=== PATIENT | female | born 1940 | race Caucasian/White ===

== ENCOUNTER 2016-10-23 20:41 | Inpatient (IN) | payer MEDICARE, OTHER ==
[2016-10-21 13:52] LABS: A/G RATIO 1.4 (0.7-1.9); ALBUMIN 3.8 G/DL (3.5-5.0); ALKALINE PHOSPHATASE 49 U/L (45-117); CALCIUM, SERUM 8.7 MG/DL (8.5-10.4); CHLORIDE, SERUM 108 MMOL/L (96-112); CO2 (CARBON DIOXIDE) 26 MMOL/L (24-34); GFR AFRICAN AMERICAN 24 ML/MIN (>=60); GFR NON AFRICAN AMERICAN 21 ML/MIN (>=60); GLOBULIN 2.8 G/DL (2.5-4.1); GLUCOSE, SERUM 98 MG/DL (60-99); IRON, SERUM 49 MCG/DL (35-150); POTASSIUM, SERUM 5.2 MMOL/L (3.5-5.3); SGOT(AST) 16 U/L (5-40); SGPT(ALT) 17 U/L (5-65); SODIUM, SERUM 140 MMOL/L (135-148); TOTAL BILIRUBIN 0.4 MG/DL (0-1.2); TOTAL PROTEIN 6.6 G/DL (6.0-8.5)
[2016-10-21 14:04] LABS: BUN (BLOOD UREA NITROGEN) 26 MG/DL (6-23); CREATININE 2.22 MG/DL (0.55-1.02)
--- NOTE | ~2016-10-23 | CN ---
Consultation Report [facility] [address] [place]. [address] NAME: BALDO ZHAO : 42 STATUS : ADM IN PAT#: [id number] AGE: 76 ADM/REG DATE : 10/23/16 MR#: [id number] REPORT SERV DATE: 10/24/16 DICTATED BY: MAX JACKMAN JR. DATE: 10/24/16 REPORT STATUS : Draft TRANSCRIBED BY: CHRISTIAN DATE: 10/24/16 CONSULTATION DATE OF CONSULTATION: 10/24/2016 CHIEF COMPLAINT: Gross hematuria and elevated creatinine. HISTORY OF PRESENT ILLNESS: Mrs. Zhao is a 76-year-old female, who is a patient of my partner, Dr. Alexandre Ching, who has been following her with longstanding staghorn calculus on the right side. He saw her in the office on Tuesday, with what appeared to be a 6 x 8 mm stone on the left in the left ureter, causing a significant degree of hydroureteronephrosis. A double-J stent was placed that day, and she was sent back home. She also had a mildly elevated creatinine of 2.22 from a baseline of approximately 1.2. I received a phone call from her on Tuesday afternoon, she was having quite a bit of difficulties managing her blood sugars, they were very low, down into the 30s based on the report from the EMS. I recommended that he bring her to the emergency room for evaluation, and she was admitted by the hospitalist service for management of her hypoglycemia. It was found at that time that her creatinine level had also bumped quite a bit once again at 3.99. She was felt to be fairly dehydrated. She also had a significant degree of hematuria, likely from placement of the stent. She was found to have a hemoglobin in the emergency room of 7.9. PAST MEDICAL HISTORY: Significant for the above-stated stone disease; hypertension; B12 deficiency; anemia; type 2 diabetes; acute renal insufficiency, requiring dialysis, status post two hemodialysis sessions and now off dialysis secondary to nonsteroidal use. PAST SURGICAL HISTORY: As above. FAMILY HISTORY: Renal stones, diabetes, and hypertension. SOCIAL HISTORY: She quit smoking 25 years ago. No illicit drugs or alcohol use. ALLERGIES: NONE KNOWN. REVIEW OF SYSTEMS: A 10-system review was performed. It was essentially negative, other than that stated above. HOME MEDICATIONS: Include Tylenol, amlodipine, aspirin, vitamin B complex, iron, glipizide, hydralazine, levothyroxine, lisinopril, Mevacor, metformin, Pyridium, Januvia, trazodone, and vitamin D3. PHYSICAL EXAMINATION: VITAL SIGNS: She is currently afebrile. Vital signs are stable. Consultation Report [place] [address] [facility] [address] NAME: BALDO ZHAO : 41 STATUS : ADM IN PAT#: [id number] AGE: 76 ADM/REG DATE : 10/23/16 MR#: [id number] REPORT SERV DATE: 10/24/16 DICTATED BY: MAX JACKMAN JR. DATE: 10/24/16 REPORT STATUS : Draft TRANSCRIBED BY: CHRISTIAN DATE: 10/24/16 GENERAL: She is a well-nourished, well-developed female, in no acute distress. HEENT: Normocephalic and atraumatic. NECK: Symmetric. CHEST: Clear to auscultation bilaterally. HEART: Regular rate and rhythm. ABDOMEN: Soft, nontender, nondistended without palpable hernias. No flank tenderness. GENITOURINARY: Deferred. LABORATORY DATA: As per the above. CT scan was reviewed that was done last night and shows the stent to be in good position. She has improved left-sided hydronephrosis. I would not expect it to be completely back to normal this soon after stent placement. The stone is visible in the renal pelvis. She has a stable right renal calculus that she has had in the past without obstructive signs. Her bladder appears normal. I do not see any blood clots in the bladder. ASSESSMENT: Gross hematuria with acute kidney injury, status post double-J stent placement for obstructing stone on the left on 10/22. RECOMMENDATIONS: We will place Alcaraz catheter. We will await urine cultures, control blood sugar, rehydrate, monitor for renal function improvement, and transfuse as per the hospitalist service. I will notify Dr. Ching of the patient's location in the morning and he will continue to follow. RAMSEY/CHRISTIAN Max Jackman Jr., M.D. / [id number] CC: Carolann Rutledge M.D.
--- NOTE | ~2016-10-23 | HP ---
History And Physical [place] [id number] [place]. [address] NAME: BALDO NASH : 41 STATUS : ADM IN [facility]#: [id number] AGE: 76 ADM/REG DATE : 10/23/16 MR#: [id number] REPORT SERV DATE: 10/24/16 DICTATED BY: DARSHANA ADAIR DATE: 10/23/16 REPORT STATUS : Draft TRANSCRIBED BY: CHRISTIAN DATE: 10/23/16 DATE OF ADMISSION: 10/23/2016 CHIEF COMPLAINT: Recurrent low blood sugars. HISTORY OF PRESENT ILLNESS: This is a 76-year-old female with a past medical history of a large left ureter stone with hydronephrosis and now status post double-J stent, postop day #1, placed by Dr. Darden. The patient states after her procedure she returned to home, has had decreased oral intake with nausea and some vomiting occasionally and felt very fatigued. She went to bed, however, this morning, the patient was unarousable by family, EMS was called, and per family, blood sugar was in the 30s, and also over the past 12 hours, they stated her blood sugars have fluctuated from high to low within a one to two hours. The patient also has had some hematuria, status post her procedure as well as dysuria, but denies any fever or chills. She states that her last dose of her diabetic medication was two days ago. Currently, at this time, she was seen in the ER by Dr. Kraft and started on D5 half drip and the hospitalist was called to admit the patient into the hospital. She denies any chest pain or shortness of breath. She states that her primary care is recommending for her to have a transfusion while she is in the hospital for her anemia. The patient's hemoglobin is currently at 7.9. The patient states that she required blood transfusion last December as well. No reports of melena or hematochezia. REVIEW OF SYSTEMS: Please refer to HPI. PAST MEDICAL HISTORY: Hydronephrosis with large left ureter stone, status post double-J stent by Dr. Ching on 10/22/2016, hypertension, B12 deficiency, anemia, type 2 diabetes, acute renal failure requiring dialysis, status post two hemodialysis sessions and now off dialysis secondary to nonsteroidal use and possibly obstruction per family. PAST SURGICAL HISTORY: As mentioned above. FAMILY HISTORY: Renal stones, type 2 diabetes, hypertension. SOCIAL HISTORY: Quit tobacco abuse 25 years ago. No alcohol or illicit drugs. ALLERGIES: NO KNOWN ALLERGIES. HOME MEDICATIONS: Tylenol 325 p.o. q.6 hours p.r.n., amlodipine 2.5 mg p.o. b.i.d., aspirin 81 mg p.o. daily, B complex vitamin p.o. daily, ferrous sulfate 325 mg p.o. daily, glipizide 5 mg p.o. with breakfast and supper, hydralazine 50 mg p.o. b.i.d., levothyroxine 50 mcg p.o. daily, lisinopril 20 mg p.o. b.i.d., Mevacor 40 mg p.o. q.h.s., metformin 1000 mg p.o. b.i.d., Pyridium 200 mg p.o. t.i.d. p.r.n., Januvia 100 mg p.o. daily, trazodone 50 mg p.o. q.h.s., vitamin D3 [id number] p.o. daily. PHYSICAL EXAMINATION: VITAL SIGNS: Temp of 98.6, blood pressure 164/72 with a pulse of 76, respirations of 18, and History And Physical [address] [address] NAME: BALDO NASH : 41 STATUS : ADM IN [facility]#: [id number] AGE: 76 ADM/REG DATE : 10/23/16 MR#: [id number] REPORT SERV DATE: 10/24/16 DICTATED BY: DARSHANA ADAIR DATE: 10/23/16 REPORT STATUS : Draft TRANSCRIBED BY: CHRISTIAN DATE: 10/23/16 saturating 94% on room air. GENERAL: The patient is alert and oriented x3, currently in no distress. HEENT: Pupils equal, round, and reactive to light. Extraocular muscles are intact. Anicteric sclerae. CARDIOVASCULAR: S1, S2. Regular rate and rhythm. No murmurs, rubs, or gallops. No JVD. RESPIRATORY: Clear to auscultation bilaterally. No wheezes or crackles. No signs of tachypnea. ABDOMEN: Positive bowel sounds. Soft, nontender. No rebound. No fluid waves. No distention. No CVA tenderness. EXTREMITIES: 2+ pulse bilaterally. No edema. NEURO: Cranial nerves II through XII grossly intact. Moves all four extremities. No neuro focal deficits with 4/5 power in all extremities. LABORATORY DATA: Sodium 138, potassium 5.4 with a chloride of 104, bicarb of 23, BUN of 44, creatinine of 3.99 with a glucose of 94. T bilirubin of 0.2, alkaline phosphatase 51, ALT of 21, AST of 18. White count of 6.1, hemoglobin of 7.9, with a platelet count of 223. UA with a specific gravity 1.012, moderate amount of blood, negative leukocyte esterase, positive nitrites, greater than 182 red blood cells. No white blood cells. ASSESSMENT AND PLAN: 1. Recurrent hypoglycemia. 2. Acute on chronic kidney disease. Recent stent to left ureter stent with hematuria. 3. Anemia. The patient will be admitted to the Hospitalist Service. The patient will be admitted to one of my colleagues who will attend to this patient's care. She will be placed on D5 half for now due to her recurrent hypoglycemic episodes, more so that occurred at home rather than in the ER, but will be closely monitored and also with Accu-Cheks. Also, hydration will help for the patient's acute on chronic kidney disease. However, the patient's metformin and KIERSTEN inhibitor will be held. Also, we will re-scan the patient's abdomen to check up for followup of recent ureter stent placement considering the patient has had worsening renal function. Also, we will perform anemia workup and also check for stool Hemoccults, and also, I suspect the patient's anemia is multifactorial secondary to some hematuria as well as her CKD and some underlying deficiency. Also, we will transfuse 1 unit of packed red blood cells. The patient will be admitted to my colleague who will attend to this patient's care. ASYA/CHRISTIAN Darshana Adair M.D. / [id number] History And Physical [address] [place]. [address] NAME: BALDO NASH : 41 STATUS : ADM IN PAT#: [id number] AGE: 76 ADM/REG DATE : 10/23/16 MR#: [id number] REPORT SERV DATE: 10/24/16 DICTATED BY: DARSHANA ADAIR DATE: 10/23/16 REPORT STATUS : Draft TRANSCRIBED BY: CHRISTIAN DATE: 10/23/16 CC: Carolann Mccloud M.D.
--- NOTE | ~2016-10-23 | DS ---
Discharge Summary [place] [id number] [place]. [address] NAME: BALDO NASH : 42 STATUS : DIS IN PAT#: [id number] AGE: 76 ADM/REG DATE : 10/23/16 MR#: [id number] REPORT SERV DATE: 10/27/16 DICTATED BY: DATE: REPORT STATUS : Draft TRANSCRIBED BY: MODL DATE: 10/26/16 ADMISSION DATE: 10/23/2016 DISCHARGE DATE: 10/26/2016 DISCHARGE DIAGNOSES: 1. Acute urinary retention status post double-J stent placement. 2. Acute blood loss anemia. 3. Acute kidney injury on chronic kidney disease. 4. Hypertension. 5. Diabetes mellitus type 2. Hemoglobin A1c was 5.7. CONSULTING PHYSICIAN: Include Dr. Ching with Urology. DISCHARGE MEDICATIONS: Include Norvasc 2.5 mg p.o. b.i.d., glipizide 5 mg p.o. with meals, Synthroid 50 mcg p.o. daily, lovastatin 40 mg p.o. at bedtime, trazodone 50 mg p.o. at bedtime, Apresoline 50 mg p.o. b.i.d., ferrous sulfate 325 mg p.o. daily, vitamin D3 one tablet p.o. daily, aspirin 81 mg p.o. daily, vitamin B complex one tablet p.o. daily, Pyridium 200 mg p.o. t.i.d. p.r.n. for urinary pain. IMAGING: Includes portable chest x-ray showed some right lower lobe atelectasis, otherwise unremarkable. CT of the abdomen and pelvis did not demonstrate an acute abdominal or pelvic pathology and did show mild left hydronephrosis in the presence of a left ureteral stent, left distal renal pelvis calculus. KUB was performed that showed a left double-J ureteral catheter in place, multiple calculi associated with right renal silhouette was noted. HOSPITAL COURSE/PROBLEM LIST: 1. Acute urinary retention. As mentioned above, the patient has status post double-J stent placement per Dr. Ching. She came in with hematuria and acute blood loss anemia. She received 1 unit of packed red blood cells. Her hemoglobin went from 7.9 to 8.9 today and is stable. She has had blood transfusions in the past for low hemoglobin. This is likely multifactorial, including anemia of chronic disease with her chronic kidney disease. She did have a positive Hemoccult stool. She has had colonoscopies in the past. The patient was encouraged to follow up with her relations liaison for colonoscopy in the near future. 2. Acute kidney injury on chronic kidney disease. Her creatinine today is 1.49. It appears that her baseline is 1.2-1.5. I will hold her metformin and her lisinopril that she was taking at home and have her follow up with the primary care provider within one week to recheck her creatinine level prior to initiating these medications. 3. Hypertension. The patient's systolic blood pressure has been 140s-150s and stable. As mentioned above, I will hold her lisinopril at this time. Continue her Norvasc as well as hydralazine p.o. 4. Diabetes mellitus type 2. Her hemoglobin A1c was 5.7. She came in with multiple episodes of hypoglycemia; therefore, I will hold her Januvia. We will continue her glipizide. Again, she will need close followup with her primary care provider for further monitoring of her blood glucose levels. I will also encourage the patient to monitor her blood glucose closely. She will follow up with Dr. Ching for an Discharge Summary [address] [address] NAME: BALDO NASH : 41 STATUS : DIS IN PAT#: [id number] AGE: 76 ADM/REG DATE : 10/23/16 MR#: [id number] REPORT SERV DATE: 10/27/16 DICTATED BY: DATE: REPORT STATUS : Draft TRANSCRIBED BY: MODL DATE: 10/26/16 outpatient urethroscopy, time to be determined. We will make an appointment for the patient with her primary care provider within one week. CARLOS/YANGL Mickey Farr NP / [id number] CC: Carolann Rutledge M.D. J. Patrick Dilworth, M.D. Hany A. Naggar, MD
[~2016-10-23 20:41] MED LIST: APRES50 PO; ASAB PO; CAT1 PO; CYANO1000T PO; GLUCOPHAGE1000 MG PO; GLUCOTROL5 PO; HALF81 PO; IRON325 MG PO; JANUVIA100 MG PO; JANUVIA50 PO; LEVOTHYROXIN50 MCG PO; MEVACOR40 MG PO; NORV5 PO; PRIN20 PO; SLOW FE160 MG PO; TRIAMCINOLONE C80 GM TOP; VITAMIN D31000 UNIT PO; ZESTRIL20 MG PO
[2016-10-23] MEDS ORDERED: NORV25 PO (21:11)
[2016-10-23] MEDS ORDERED: LEVOTHYROXIN50 MCG PO (21:12)
[2016-10-23] MEDS ORDERED: FERROUS SULF325 M1 PO (21:12)
[2016-10-23] MEDS ORDERED: JANUVIA100 MG PO (21:12)
[2016-10-23] MEDS ORDERED: TRAZ50 PO (21:12)
[2016-10-23] MEDS ORDERED: T PO (21:13)
[2016-10-23] MEDS ORDERED: GLUCOTROL5 PO (21:13)
[2016-10-23] MEDS ORDERED: GLUCOPHAGE1000 MG PO (21:13)
[2016-10-23] MEDS ORDERED: PRIN20 PO (21:13)
[2016-10-23] MEDS ORDERED: HALF81 PO (21:14)
[2016-10-23] MEDS ORDERED: APRES50 PO (21:14)
[2016-10-23] MEDS ORDERED: VITAMIN D3 OTC PO (21:14)
[2016-10-23] MEDS ORDERED: MEVACOR40 MG PO (21:14)
[2016-10-23] MEDS ORDERED: PYR200 PO (21:15)
[2016-10-23] MEDS ORDERED: VITAMIN B PO (21:15)
[2016-10-23 21:20] LABS: BASOPHILS 0 %; EOSINOPHILS 1.1 %; EOSINOPHILS ABSOLUTE 0.07 10/3/uL (0.0-0.53); HEMATOCRIT 23.9 % (36.0-48.0); HEMOGLOBIN 7.9 g/dL (12.0-16.0); IMMATURE GRANULOCYTES 0.3 %; IMMATURE GRANULOCYTES ABSOLUTE 0.02 10/3/uL (0.0-0.11); LYMPHOCYTES 14.7 %; MEAN CORPUS HGB CONC 33.1 g/dL (32.0-36.0); MEAN CORPUSCULAR HEMOGLOB 32.8 pg (26.0-34.0); MEAN CORPUSCULAR VOLUME 99.2 fL (80-100); MEAN PLATELET VOLUME 10.6 fL (9.2-13.0); MONOCYTES 10.4 %; MONOCYTES ABSOLUTE 0.64 10/3/uL (0.21-1.20); NEUTROPHILS 73.5 %; NEUTROPHILS ABSOLUTE 4.51 10/3/uL (2.02-8.40); PLATELET COUNT 223 10/3/uL (150-400); RBC DISTRIBUTION WIDTH 13.2 % (12.0-16.0); RED CELL COUNT 2.41 10/6/uL (4.0-5.6)
[2016-10-23 21:23] LABS: ER CBC TAT 0 Hrs 07 Mins; MANUAL DIFF NO %; WHITE BLOOD CELLS 6.1 10/3/uL (4.5-10.5)
[2016-10-23 21:34] LABS: WBC (NOT ORDERED) (RFLEX) 0 (0-5)
[2016-10-23 21:35] LABS: A/G RATIO 0.9 (0.7-1.9); ALBUMIN 3.3 G/DL (3.5-5.0); ALKALINE PHOSPHATASE 51 U/L (45-117); CALCIUM, SERUM 8.4 MG/DL (8.5-10.4); CHLORIDE, SERUM 104 MMOL/L (96-112); CO2 (CARBON DIOXIDE) 23 MMOL/L (24-34); GLUCOSE, SERUM 94 MG/DL (60-99); POTASSIUM, SERUM 5.4 MMOL/L (3.5-5.3); SGOT(AST) 18 U/L (5-40); SGPT(ALT) 21 U/L (5-65); SODIUM, SERUM 138 MMOL/L (135-148); TOTAL BILIRUBIN 0.2 MG/DL (0-1.2); TOTAL PROTEIN 6.9 G/DL (6.0-8.5)
[2016-10-23 21:36] LABS: BUN (BLOOD UREA NITROGEN) 44 MG/DL (6-23); CREATININE 3.99 MG/DL (0.55-1.02); GFR AFRICAN AMERICAN 12 ML/MIN (>=60); GFR NON AFRICAN AMERICAN 10 ML/MIN (>=60); GLOBULIN 3.6 G/DL (2.5-4.1)
[2016-10-23 21:47] LABS: ASCORBIC ACID (UR NOT ORDER) NEG (NEG); BILIRUBIN, URINE NEGATIVE (NEG); ER URINALYSIS TAT 0 Hrs 15 Mins; KETONE, URINE NEGATIVE (NEG); LEUKOCYTE ESTERASE(NOT OR NEG (NEG); NITRITE (URINE) POS (NEG)
[2016-10-24 08:22] LABS: BASOPHILS 0.2 %; BASOPHILS ABSOLUTE 0.01 10/3/uL (0.0-0.16); EOSINOPHILS 3.2 %; EOSINOPHILS ABSOLUTE 0.14 10/3/uL (0.0-0.53); IMMATURE GRANULOCYTES 0.2 %; IMMATURE GRANULOCYTES ABSOLUTE 0.01 10/3/uL (0.0-0.11); LYMPHOCYTES 24.5 %; LYMPHOCYTES ABSOLUTE 1.08 10/3/uL (0.67-4.30); MEAN CORPUS HGB CONC 34.1 g/dL (32.0-36.0); MEAN CORPUSCULAR HEMOGLOB 33.1 pg (26.0-34.0); MEAN CORPUSCULAR VOLUME 97.2 fL (80-100); MEAN PLATELET VOLUME 10.7 fL (9.2-13.0); MONOCYTES 10.9 %; MONOCYTES ABSOLUTE 0.48 10/3/uL (0.21-1.20); NEUTROPHILS ABSOLUTE 2.68 10/3/uL (2.02-8.40); PLATELET COUNT 189 10/3/uL (150-400); RBC DISTRIBUTION WIDTH 14.6 % (12.0-16.0); RED CELL COUNT 2.87 10/6/uL (4.0-5.6); WHITE BLOOD CELLS 4.4 10/3/uL (4.5-10.5)
[2016-10-24 08:23] LABS: HEMATOCRIT 27.9 % (36.0-48.0); HEMOGLOBIN 9.5 g/dL (12.0-16.0); MANUAL DIFF NO %
[2016-10-24 08:38] LABS: % IRON SAT 25 % (20-50); BUN (BLOOD UREA NITROGEN) 36 MG/DL (6-23); CALCIUM, SERUM 8.7 MG/DL (8.5-10.4); CHLORIDE, SERUM 108 MMOL/L (96-112); CO2 (CARBON DIOXIDE) 23 MMOL/L (24-34); CREATININE 3.32 MG/DL (0.55-1.02); FERRITIN 240 NG/ML (8-252); GFR AFRICAN AMERICAN 15 ML/MIN (>=60); GFR NON AFRICAN AMERICAN 13 ML/MIN (>=60); GLUCOSE, SERUM 160 MG/DL (60-99); IRON BINDING CAPACITY 233 MCG/DL (225-410); IRON, SERUM 59 MCG/DL (35-150); POTASSIUM, SERUM 5.5 MMOL/L (3.5-5.3); SODIUM, SERUM 141 MMOL/L (135-148)
[2016-10-25 05:22] LABS: BASOPHILS 0.3 %; BASOPHILS ABSOLUTE 0.01 10/3/uL (0.0-0.16); EOSINOPHILS ABSOLUTE 0.17 10/3/uL (0.0-0.53); HEMATOCRIT 26.6 % (36.0-48.0); HEMOGLOBIN 8.8 g/dL (12.0-16.0); IMMATURE GRANULOCYTES 0.3 %; IMMATURE GRANULOCYTES ABSOLUTE 0.01 10/3/uL (0.0-0.11); LYMPHOCYTES 32.9 %; LYMPHOCYTES ABSOLUTE 1.13 10/3/uL (0.67-4.30); MEAN CORPUS HGB CONC 33.1 g/dL (32.0-36.0); MEAN CORPUSCULAR HEMOGLOB 32.2 pg (26.0-34.0); MEAN CORPUSCULAR VOLUME 97.4 fL (80-100); MEAN PLATELET VOLUME 10.7 fL (9.2-13.0); MONOCYTES 11.4 %; MONOCYTES ABSOLUTE 0.39 10/3/uL (0.21-1.20); NEUTROPHILS 50.1 %; NEUTROPHILS ABSOLUTE 1.72 10/3/uL (2.02-8.40); PLATELET COUNT 195 10/3/uL (150-400); RBC DISTRIBUTION WIDTH 15.3 % (12.0-16.0); RED CELL COUNT 2.73 10/6/uL (4.0-5.6); WHITE BLOOD CELLS 3.4 10/3/uL (4.5-10.5)
[2016-10-25 05:32] LABS: A/G RATIO 0.8 (0.7-1.9); ALBUMIN 2.7 G/DL (3.5-5.0); ALKALINE PHOSPHATASE 49 U/L (45-117); CHLORIDE, SERUM 114 MMOL/L (96-112); CO2 (CARBON DIOXIDE) 22 MMOL/L (24-34); GLOBULIN 3.2 G/DL (2.5-4.1); SGOT(AST) 25 U/L (5-40); SGPT(ALT) 24 U/L (5-65); SODIUM, SERUM 145 MMOL/L (135-148); TOTAL BILIRUBIN 0.6 MG/DL (0-1.2); TOTAL PROTEIN 5.9 G/DL (6.0-8.5)
[2016-10-25 05:35] LABS: BUN (BLOOD UREA NITROGEN) 23 MG/DL (6-23); CALCIUM, SERUM 7.7 MG/DL (8.5-10.4); CREATININE 2.12 MG/DL (0.55-1.02); GFR AFRICAN AMERICAN 26 ML/MIN (>=60); GFR NON AFRICAN AMERICAN 22 ML/MIN (>=60); GLUCOSE, SERUM 112 MG/DL (60-99)
[2016-10-25 05:48] LABS: MANUAL DIFF NO %
[2016-10-26 04:49] LABS: BASOPHILS 0.2 %; BASOPHILS ABSOLUTE 0.01 10/3/uL (0.0-0.16); EOSINOPHILS ABSOLUTE 0.17 10/3/uL (0.0-0.53); HEMATOCRIT 27.2 % (36.0-48.0); HEMOGLOBIN 8.9 g/dL (12.0-16.0); IMMATURE GRANULOCYTES 0.5 %; IMMATURE GRANULOCYTES ABSOLUTE 0.02 10/3/uL (0.0-0.11); LYMPHOCYTES 24.5 %; LYMPHOCYTES ABSOLUTE 1.05 10/3/uL (0.67-4.30); MANUAL DIFF NO %; MEAN CORPUS HGB CONC 32.7 g/dL (32.0-36.0); MEAN CORPUSCULAR HEMOGLOB 32.5 pg (26.0-34.0); MEAN CORPUSCULAR VOLUME 99.3 fL (80-100); MONOCYTES 9.6 %; MONOCYTES ABSOLUTE 0.41 10/3/uL (0.21-1.20); NEUTROPHILS 61.2 %; NEUTROPHILS ABSOLUTE 2.63 10/3/uL (2.02-8.40); PLATELET COUNT 176 10/3/uL (150-400); RBC DISTRIBUTION WIDTH 14.7 % (12.0-16.0); RED CELL COUNT 2.74 10/6/uL (4.0-5.6); WHITE BLOOD CELLS 4.3 10/3/uL (4.5-10.5)
[2016-10-26 05:01] LABS: CALCIUM, SERUM 7.5 MG/DL (8.5-10.4); CHLORIDE, SERUM 117 MMOL/L (96-112); CO2 (CARBON DIOXIDE) 22 MMOL/L (24-34); PHOSPHORUS, SERUM 3.1 MG/DL (2.5-4.5); POTASSIUM, SERUM 5.1 MMOL/L (3.5-5.3); SODIUM, SERUM 145 MMOL/L (135-148)
[2016-10-26 05:02] LABS: BUN (BLOOD UREA NITROGEN) 18 MG/DL (6-23); CREATININE 1.49 MG/DL (0.55-1.02); GFR AFRICAN AMERICAN 39 ML/MIN (>=60); GFR NON AFRICAN AMERICAN 34 ML/MIN (>=60); GLUCOSE, SERUM 138 MG/DL (60-99)
[2016-11-01] MEDS ORDERED: VITAMIN D2000 UNIT PO (09:09)
[2016-11-01] MEDS ORDERED: VITAMIN B (09:27)
[2016-12-31] MEDS ORDERED: INSNOVN SC ×2 (11:35→11:45)
[2016-12-31] MEDS ORDERED: INSNOVR SC (11:36)
[2017-02-03] MEDS ORDERED: VITAMIN D31000 UNIT PO (10:00)
[2017-02-03] MEDS ORDERED: VITAMIN B PO (10:00)
== END 2016-10-26 10:29 | disposition home or self-care (01) | DRG 683 ==
LOC: ER 20:41 → 7NO 23:26
PROVIDERS: Emergency Medicine; Family Medicine; Internal Medicine
PROC: 0T778DZ Dilation of Left Ureter with Intraluminal Device, Via Natural or Artificial Opening Endoscopic (ICD-10-PCS; 2016-10-23)
PROC: BT1FYZZ Fluoroscopy of Left Kidney, Ureter and Bladder using Other Contrast (ICD-10-PCS; 2016-10-23)
PROC: 30233N1 Transfusion of Nonautologous Red Blood Cells into Peripheral Vein, Percutaneous Approach (ICD-10-PCS; principal; 2016-10-24)
DX: N17.9 Acute kidney failure, unspecified (principal); D62 Acute posthemorrhagic anemia; E11.649 Type 2 diabetes mellitus with hypoglycemia without coma; G30.9 Alzheimer's disease, unspecified; F02.80 Dementia in other diseases classified elsewhere, unspecified severity, without behavioral disturbance, psychotic disturbance, mood disturbance, and anxiety; E86.0 Dehydration; N13.2 Hydronephrosis with renal and ureteral calculous obstruction; I12.9 Hypertensive chronic kidney disease with stage 1 through stage 4 chronic kidney disease, or unspecified chronic kidney disease; N18.3 Chronic kidney disease, stage 3 (moderate); R31.0 Gross hematuria; R33.8 Other retention of urine; E03.9 Hypothyroidism, unspecified; K80.20 Calculus of gallbladder without cholecystitis without obstruction; D63.1 Anemia in chronic kidney disease; E53.8 Deficiency of other specified B group vitamins; Z79.82 Long term (current) use of aspirin; Z79.84 Long term (current) use of oral hypoglycemic drugs; Z87.891 Personal history of nicotine dependence; Z79.899 Other long term (current) drug therapy; Z83.3 Family history of diabetes mellitus
CPT/HCPCS: 36415; 71010; 74000; 74176; 74420; 80048; 80053; 81001; 81002; 82272; 82607; 82728; 82962; 83036; 83540; 83550; 83735; 84100; 85025; 86850; 86900; 86901; 86920; 87086; 93005; 99285; A9270-GY; C1758; C1769; C1874; G0463; J1170; J2250; J2405; J2710; J3010; P9016; Q9967

== ENCOUNTER 2016-11-05 13:04 | Day surgery (SDC) | payer MEDICARE, OTHER ==
--- NOTE | ~2016-11-05 | OP ---
Record Of Operation [facility] [address] [place]. [address] NAME: BALDO ZHAO : 42 STATUS : [facility]#: [id number] AGE: 76 ADM/REG DATE : 11/05/16 MR#: [id number] REPORT SERV DATE: 11/05/16 DICTATED BY: Nickolas MCCOY DATE: 11/05/16 REPORT STATUS : Draft TRANSCRIBED BY: MODL DATE: 11/05/16 DATE OF PROCEDURE: 11/05/2016 PREOPERATIVE DIAGNOSIS: Left proximal ureteral stone. POSTOPERATIVE DIAGNOSIS: Left renal pelvic stone. PROCEDURES: Cystoscopy, removal of left double-J stent, left retrograde pyelography, rigid ureteroscopy, basket stone extraction, and double-J stent placement. SURGEON: Nickolas Mccoy M.D. ANESTHESIA: General endotracheal. COMPLICATIONS: None. DRAINS: 7-Iraqi x 24 cm Contour double-J stent (on a string). BRIEF HISTORY: Ms. Zhao is a patient well known to me with a long-standing right branched renal calculus who presented on 10/22/2016 with pain and an obstructing left proximal stone. She was having nausea and vomiting and had some renal insufficiency. We have sent her urgently to the hospital and placed a stent later that day. The plan was for delayed lithotripsy, but as it turned out, the stone was not visible on plain radiography and presumed to be a uric acid stone. Therefore, we are here for ureteroscopic management. The risks of bleeding, infection, anesthesia, inability to remove all stones, need for postoperative stent, etc. were all discussed. There were no unanswered questions. She has been much better since her previous procedure. DESCRIPTION OF PROCEDURE: Under excellent general anesthesia, the patient was prepped and draped in standard lithotomy position. Cystoscopy was performed with a 30-degree lens, revealed a stent emanating from left orifice. Flexible grasper was used to remove it without difficulty. I then inserted an angled glidewire through a 5-Iraqi open-ended catheter up to the level of the renal pelvis and dilutely opacified the collecting system. I then used a long rigid ureteroscope and passed it all the way into the renal pelvis where I saw by a shi colored stone, although it appeared as advertised at least 8 mm in size. It was smooth in the ureter, appeared capacious. I decided to engage it in the basket with the initial intent of at least moving it further down the ureter so I did not have to do intrarenal lithotripsy. I engaged it in a nitinol basket without difficulty, and to my surprise, I was able to pull it all the way down the ureter and remove it without any difficulty. I then reinserted the scope, opacified the collecting system, saw no further filling defects or stones, and removed the scope. I retrofitted the wire into the cystoscope and then placed a 7-Iraqi x 24 cm Contour double J which was able to coil nicely in the renal pelvis and bladder. I left the string attached and plan to discharge Ms. Zhao is an outpatient with the following instructions. DISCHARGE INSTRUCTIONS: Record Of Operation [facility] [address] [facility] [place]. [address] NAME: BALDO ZHAO : 42 STATUS : [facility]#: [id number] AGE: 76 ADM/REG DATE : 11/05/16 MR#: [id number] REPORT SERV DATE: 11/05/16 DICTATED BY: Nickolas MCCOY DATE: 11/05/16 REPORT STATUS : Draft TRANSCRIBED BY: CHRISTIAN DATE: 11/05/16 1. Home today. 2. Remove her stent in three days. She can call my office if she has any problems. 3. Her said that she does not need any medicine refills. 4. Follow up in my office in two to three months to review her stone and proceed as indicated. As we discussed, it is highly likely to be a uric acid stone. JORGE/CHRISTIAN Nickolas Mccoy M.D. / [id number] CC: Carolann Hughes M.D.
[~2016-11-05 13:04] MED LIST changes: +FERROUS SULF325 M1 PO; +NORV25 PO; +PYR200 PO; +T PO; +TRAZ50 PO; +VITAMIN B; +VITAMIN B PO; +VITAMIN D2000 UNIT PO; +VITAMIN D3 OTC PO
[2016-11-11 23:20] LABS: STONE COMPOSITION TWO DNR (())
[2016-12-31] MEDS ORDERED: INSNOVN SC ×2 (11:35→11:45)
[2016-12-31] MEDS ORDERED: INSNOVR SC (11:36)
[2017-02-03] MEDS ORDERED: VITAMIN D31000 UNIT PO (10:00)
[2017-02-03] MEDS ORDERED: VITAMIN B PO (10:00)
== END 2016-11-05 20:20 | disposition home or self-care (01) ==
LOC: SDC 13:04
PROC: 0TP98DZ Removal of Intraluminal Device from Ureter, Via Natural or Artificial Opening Endoscopic (ICD-10-PCS; 2016-11-05)
PROC: BT1FZZZ Fluoroscopy of Left Kidney, Ureter and Bladder (ICD-10-PCS; 2016-11-05)
PROC: 0T778DZ Dilation of Left Ureter with Intraluminal Device, Via Natural or Artificial Opening Endoscopic (ICD-10-PCS; principal; 2016-11-05 14:45)
DX: N20.0 Calculus of kidney (principal); E11.22 Type 2 diabetes mellitus with diabetic chronic kidney disease; I12.9 Hypertensive chronic kidney disease with stage 1 through stage 4 chronic kidney disease, or unspecified chronic kidney disease; N18.9 Chronic kidney disease, unspecified; D50.9 Iron deficiency anemia, unspecified; Z98.890 Other specified postprocedural states; K80.20 Calculus of gallbladder without cholecystitis without obstruction; M19.90 Unspecified osteoarthritis, unspecified site; I10 Essential (primary) hypertension; E78.00 Pure hypercholesterolemia, unspecified; Z88.1 Allergy status to other antibiotic agents; Z88.6 Allergy status to analgesic agent; Z79.899 Other long term (current) drug therapy; Z79.82 Long term (current) use of aspirin
CPT/HCPCS: 74420; 82365; 82962; C1758; C1769; C1874; J2250; J2405; J2710; J3010; Q9967

== ENCOUNTER 2017-01-05 12:31 | Inpatient (IN) | payer MEDICARE, OTHER ==
[2017-01-04 14:02] LABS: HEMATOCRIT 28.7 % (36.0-48.0); HEMOGLOBIN 9.1 g/dL (12.0-16.0)
[2017-01-04 14:12] LABS: BUN (BLOOD UREA NITROGEN) 26 MG/DL (6-23); CALCIUM, SERUM 9.3 MG/DL (8.5-10.4); CHLORIDE, SERUM 105 MMOL/L (96-112); CO2 (CARBON DIOXIDE) 29 MMOL/L (24-34); GFR AFRICAN AMERICAN 36 ML/MIN (>=60); GFR NON AFRICAN AMERICAN 31 ML/MIN (>=60); GLUCOSE, SERUM 174 MG/DL (60-99); POTASSIUM, SERUM 4.2 MMOL/L (3.5-5.3); SODIUM, SERUM 139 MMOL/L (135-148)
--- NOTE | ~2017-01-05 | DS ---
Discharge Summary [place] [id number] [place]. [address] NAME: BALDO ZHAO : 42 STATUS : DIS IN PAT#: [id number] AGE: 76 ADM/REG DATE : 01/05/17 MR#: [id number] REPORT SERV DATE: 02/02/17 DICTATED BY: Nickolas MCCOY DATE: 02/01/17 REPORT STATUS : Draft TRANSCRIBED BY: MODL DATE: 02/01/17 ADMISSION DATE: 01/05/2017 DISCHARGE DATE: 01/11/2017 ADMISSION DIAGNOSIS: Symptomatic right renal staghorn calculus. DISCHARGE DIAGNOSIS: Symptomatic right renal staghorn calculus. PROCEDURES DURING ADMISSION: 1. 01/05/2017 placement of two right percutaneous nephrostomy tubes by Dr. Mcneil. 2. 01/06/[address] Mccoy. 3. 01/07/2017, placement of right nephroureterostomy tube by Dr. Whittaker. CONSULTATION: Hospitalist consultation. BRIEF HISTORY: Ms. Zhao is a 76-year-old white female with large volume staghorn like stone disease in the right kidney that we have followed for many years as she has been reluctant to pursue intervention. She recently developed rather dramatic right flank pain and it appeared that at least part of her collecting system had become obstructed by some stone movement. We decided proceed with right percutaneous nephrolithotomy. The risks of bleeding, infection, anesthesia, inability to remove all stones, injury to adjacent organs, etc. were all discussed. There were no unanswered questions. HOSPITAL COURSE AND TREATMENT: The patient went to Interventional Radiology on 01/05. Two access sites were placed by Dr. Mcneil but his notes indicate that really none of these stones had complete access to the central collecting system and that she would likely need more sites to remove her stone. It is my hope that we would remove the symptomatic stones at least and see how she did. She was taken the OR on 01/06 where with the assistance of Dr. Borges, we did a right PCNL. I got out as much stone as I could through the access sites but quite frankly I would think there was about 50% of the stone I could not access in the any other calices from these two sites. We probably worked for 2-1/2 to 3 hours, and I felt that additional access sites on this day would be inappropriate. The patient tolerated the procedure well. She went to the floor, had a rough night for pain control, and I had left only the ureteral catheter and nephrostomy tube in her. I thought that she would be best served by having a NU stent or something to let her heal. I witnessed Dr. Whittaker through the observation room in the interventional Radiology. He had some difficulty placing a right NU stent mainly due to some distal obstruction although eventually it passed, even with quite a bit of sedation, the patient's pain control was difficult during this procedure and ultimately, we had a lot of discussion with the family about that. At any rate, she was left to drain. It was hoped to cap the tube in the morning and let her go home. She had some constipation, low-grade fever, and even though her hemoglobin was chronically low, it was felt that she could go home after a unit of pack cells and those plans were made by Dr. Steinberg who was on-call. Apparently, she developed some confusion and possible motor deficit. She was seen by the hospitalists. Their workup was essentially negative and she gradually improved. It was felt that maybe she had been over narcotized. I saw again on 01/10, Tuesday morning, events were noted. She had felt poorly and was really not wanting to Discharge Summary [address] [place]. [address] NAME: BALDO ZHAO : 42 STATUS : DIS IN PAT#: [id number] AGE: 76 ADM/REG DATE : 01/05/17 MR#: [id number] REPORT SERV DATE: 02/02/17 DICTATED BY: Nickolas MCCOY DATE: 02/01/17 REPORT STATUS : Draft TRANSCRIBED BY: MODKeya DATE: 02/01/17 be conversant. She was afebrile and there was a thought that perhaps we should check a CT scan to make sure she did not have a leak. I had a long discussion with her family over pain control issues and pledged that in the future, if she needed Interventional Radiology we would try to arrange general anesthesia. CT scan showed no drainable fluid. Her white count was normal, and she was observed one more night. On 01/11, she was discharged home with the following plan. DISCHARGE INSTRUCTIONS: Home today. My tentative plan would be to internalize her right NU to a JJ stent and then consider stent removal and/or evaluation of her renal function. She may simply want her NU out, but I think things need to heal for at least a week or so and then we can arrange for either an internalization to a JJ stent or NU removal and plans to either watch her stones or treat as appropriate. She and her understand that there was some fragments up there that may fall into the ureter and demand treatment and they appear okay with that. They were satisfied with our response to their concerns, and I will see them in followup as noted. JORGE/CHRISTIAN Nickolas Mccoy M.D. / [id number] CC: Carolann Hughes M.D.
--- NOTE | ~2017-01-05 | CN ---
Consultation Report [facility] [address] [place]. [address] NAME: BALDO NASH : 42 STATUS : ADM IN PAT#: [id number] AGE: 76 ADM/REG DATE : 01/05/17 MR#: [id number] REPORT SERV DATE: 01/09/17 DICTATED BY: MERISSA MILLER DATE: 01/09/17 REPORT STATUS : Draft TRANSCRIBED BY: MODL DATE: 01/09/17 HOSPITALIST CONSULTATION DATE OF CONSULTATION: 01/09/2017 REASON FOR CONSULTATION: Questionable stroke per Dr. Hernandez. HISTORY OF PRESENT ILLNESS: This is an awake, alert, and oriented, very pleasant 76-year-old female, who was admitted on 01/05/[address] Alexandre Ching. She has subsequently undergone a right percutaneous nephrolithotomy on 01/06/2017, and early this morning, the patient awoke from sleep confused. The patient's was concerned, she had a possible stroke, admitting physician was notified, and consulted hospitalist for management of this condition at this time. Of note, the patient has not displayed a motor deficit and is able to answer all questions appropriately. Denying all complaints except for right flank pain being a 10/10, which is consistent with her recent surgical procedure. The patient's is concerned because he noted the patient's confusion and "she is just not a woman I have known for 50 years tonight." The patient's NIH score was 0. Pupils were equal and reactive. Again no motor deficits. The patient is alert and oriented x3. The patient denies chest pain, palpitations, dyspnea, headaches, dizziness, syncope or near syncope, abdominal pain, nausea, vomiting, and diarrhea. Extensive education was provided to the patient and on opiate analgesia, with plan of care explained at length for possible stroke evaluation. PAST MEDICAL HISTORY: Significant for: 1. Hypertension. 2. High cholesterol. 3. Osteoarthritis. 4. Kidney failure attributed to NSAID use with two dialysis treatments. 5. Insulin-dependent type 2 diabetes mellitus. 6. Hypothyroidism. 7. Chronic anemia. PAST SURGICAL HISTORY: Significant for the right percutaneous nephrolithotomy, 01/06/2017. Colonoscopy, 2014. Cysto with JJ stent placement, 10/2016. The patient's is Tylor Cifuentes M.D. She follows with Dr. Ching, Urologist; Dr. Penny Gonzalez, storage worker as well. FAMILY HISTORY: Mother is and the patient reports a history of "heart problems", as well as diabetes mellitus. The patient's father's medical history is unknown. The patient has six brothers and two sisters. Five of whom have with an unknown medical history. SOCIAL HISTORY: The patient is and lives at home with her . She is a former Consultation Report [address] [address] NAME: BALDO NASH : 42 STATUS : ADM IN [facility]#: [id number] AGE: 76 ADM/REG DATE : 01/05/17 MR#: [id number] REPORT SERV DATE: 01/09/17 DICTATED BY: MERISSA MILLER DATE: 01/09/17 REPORT STATUS : Draft TRANSCRIBED BY: CHRISTIAN DATE: 01/09/17 tobacco user having quit smoking cigarettes in 1989. She denies alcohol and illicit drug use. ALLERGIES: 1. IBUPROFEN, DUE TO KIDNEY FAILURE. 2. BACTRIM. HOME MEDICATIONS: 1. Tylenol 325 mg p.o. q.6 hours p.r.n. 2. Norvasc 2.5 mg p.o. twice daily. 3. Vitamin B complex tab one tab p.o. daily. 4. Ferrous sulfate 325 mg p.o. daily. 5. Hydralazine 75 mg p.o. twice daily. 6. Novolin N 22 units subcutaneous daily. 7. Novolin N 13 units subcutaneous at bedtime. 8. Novolin R subcutaneous before meals if blood sugar is greater than 150 by sliding scale. 9. Levothyroxine 50 mcg p.o. daily. 10.Lovastatin 40 mg p.o. at bedtime. 11.Vitamin D3 one tab p.o. daily. REVIEW OF SYSTEMS: A complete 10-point review of systems was negative except as per HPI. PHYSICAL EXAMINATION: VITAL SIGNS: Temperature 98.6, pulse 83, respiratory rate 16, blood pressure 136/61, and SpO2 of 93% on room air. GENERAL: Well-appearing female, in no acute distress. NEURO: Awake, alert, and oriented x3, without focal deficit. As stated above NIH is 0. PERRL at 3. Moves all extremities x4 spontaneously and to command. HEENT: Normocephalic and atraumatic without lymphadenopathy. NECK: Supple. No JVD. LUNGS: CTA in all lung beaver with normal respiratory effort. CARDIOVASCULAR: Regular rate and rhythm. S1 and S2 auscultated without murmur, rub, gallop, or click. ABDOMEN: Soft, round, and nontender with bowel sounds hypoactive in all quadrants. No masses. EXTREMITIES: No cyanosis. Cap refill within normal limits. Generalized edema to bilateral lower extremities. PSYCH: Normal affect. SKIN: Clean, dry, and intact, with mucous membranes pink and moist. PERTINENT LABORATORY DATA: Sodium 140, potassium 4.6, BUN and creatinine 24 and 1.46. Last blood sugar fingerstick was 140, hemoglobin and hematocrit 7.1 and 22.5. Consultation Report [place] [id number] [facility] [place]. [address] NAME: BALDO NASH : 42 STATUS : ADM IN [facility]#: [id number] AGE: 76 ADM/REG DATE : 01/05/17 MR#: [id number] REPORT SERV DATE: 01/09/17 DICTATED BY: MERISSA MILLER DATE: 01/09/17 REPORT STATUS : Draft TRANSCRIBED BY: MODKeya DATE: 01/09/17 PERTINENT IMAGING: EKG has been ordered. Head CT without contrast has been ordered as well. ASSESSMENT AND PLAN: 1. Confusion, this is acute and reported by possibly related to the opiate analgesia. Of note, the patient is alert, oriented x3. We will obtain a 12-lead EKG. We will include a.m. labs with an ammonia level as well. Continue med/surg telemetry and obtain a head CT without contrast. 2. Hypertension, this is chronic with no tobacco abuse reported since 1989, this is well controlled by home medications. We will continue her current treatment and monitor labs. 3. High cholesterol. Again, this is chronic and we will continue her current treatment. 4. Type 2 insulin-dependent diabetes mellitus, this is chronic, although, the patient refused her most recent dose of sliding scale insulin. We will continue her current treatment, monitor labs, and the patient and have been encouraged to follow up plan of care while here in the hospital to optimize outcomes. 5. Postop nephrolithotomy completed on 01/06/2017. She is currently postop day #3, we will defer to the primary team for management of this condition and we will monitor her labs. Thank you for this consult. We are pleased to follow this patient with you. This consult was completed through thorough review of [employer], old records, [employer], current chart, as well as interview with the patient and . [facility]/CHRISTIAN Merissa Miller NP / [id number] CC: Carolann Hughes M.D.
--- NOTE | ~2017-01-05 | OP ---
Record Of Operation [facility] [address] [place]. [address] NAME: BALDO ZHAO : 42 STATUS : ADM IN PAT#: [id number] AGE: 76 ADM/REG DATE : 01/05/17 MR#: [id number] REPORT SERV DATE: 01/06/17 DICTATED BY: Nickolas MCCOY DATE: 01/06/17 REPORT STATUS : Draft TRANSCRIBED BY: MODKeya DATE: 01/06/17 DATE OF PROCEDURE: 01/06/2017 PREOPERATIVE DIAGNOSIS: Large branched right renal calculus. POSTOPERATIVE DIAGNOSIS: Large branched right renal calculus. PROCEDURE: Right percutaneous nephrolithotomy (4.0 cm stone size). RADIOLOGIST: Andrea Borges M.D. COMPLICATIONS: None. DRAINS: 1. 18-Micronesian Alcaraz catheter. 2. 20-Micronesian percutaneous nephrostomy tubes x2. 3. 5-Micronesian open-ended ureteral catheter. BRIEF HISTORY: Ms. Zhao is a 76-year-old white female with a history of a large stone in her right kidney that only recently became symptomatic. We discussed options and decided to proceed with percutaneous nephrolithotomy. The risks of bleeding, infection, anesthesia, injury to adjacent organs, need for multiple procedures, inability to remove all stone, etc. were discussed. There were no unanswered questions. DESCRIPTION OF PROCEDURE: Under excellent general anesthesia, the patient was placed in the prone position on the operating table. She had 2 access sites that were prepped and draped in a standard fashion. We accessed the lower pole site and the track was dilated by Dr. Borges. The offset lens nephroscope was then used, and a significant amount of stone was engaged and removed. I could no longer see any active stone in that area and we proceeded to access the upper pole tract as well. Again a considerable amount of stone was removed fluoroscopically. I saw a stone located in the medial aspect of the renal pelvis that I could never access. I do not know if we need to go in to another site but I spent several hours trying to access additional stone that was visible fluoroscopically and I was unable. I therefore decided to stop the procedure. I placed a 20-Micronesian Councill nephrostomy tube over a wire into the lower pole and plugged it. At the end of the case, it looked like it probably pulled into the tract. I similarly placed a 5-Micronesian open-ended ureteral catheter down to about two-thirds of the way down the ureter but I was having difficulty advancing it and did not advance it any further. I placed a 20-Micronesian percutaneous nephrostomy tube in the upper pole down into the level of the renal pelvis and secured all of these to the skin with 2-0 silk suture. I plan to observe Ms. Zhao overnight and probably will try to assess her remaining stone disease and consider internalization of her tubes for further intervention as indicated. JPD/MODL Record Of Operation [address] [place]. [address] NAME: BALDO ZHAO : 42 STATUS : ADM IN PAT#: [id number] AGE: 76 ADM/REG DATE : 01/05/17 MR#: [id number] REPORT SERV DATE: 01/06/17 DICTATED BY: Nickolas MCCOY DATE: 01/06/17 REPORT STATUS : Draft TRANSCRIBED BY: MODL DATE: 01/06/17 Nickolas Mccoy M.D. / [id number] CC: Nickolas Mccoy M.D.
--- NOTE | ~2017-01-05 | HP ---
History And Physical [place] [place] [address] [place]. [address] NAME: BALDO ZHAO : 42 STATUS : ADM IN PAT#: [id number] AGE: 76 ADM/REG DATE : 01/05/17 MR#: [id number] REPORT SERV DATE: 01/06/17 DICTATED BY: Nickolas MCCOY DATE: 01/06/17 REPORT STATUS : Draft TRANSCRIBED BY: MODKeya DATE: 01/06/17 DATE OF ADMISSION: 01/05/2017 CHIEF COMPLAINT: Large right branched renal calculus with pain. HISTORY OF PRESENT ILLNESS: Ms. Zhao is a 76-year-old white female, followed by me for several years with a large branched stone on the right side. She had been asymptomatic with no history of infection, but recently began having right flank pain, and a CT scan showed some dilation, especially in the lower pole. We decided to proceed with percutaneous stone removal. Risks of bleeding, infection, anesthesia, injury to adjacent organs, inability to remove all stones, etc., were discussed. There were no unanswered questions. She was scheduled for a nephrostomy tube placement on 01/05/2017. PAST MEDICAL HISTORY: Urolithiasis, diabetes mellitus, hypertension, acute renal failure due to nonsteroidal anti-inflammatory use, and chronic anemia. PAST SURGICAL HISTORY: 10/20/2016: Cysto, retrograde stone manipulation, stent placement. 11/05/2016: Cysto, retrograde stone extraction with stent exchange. HOME MEDICATIONS: Acetaminophen, amlodipine, vitamin B complex, iron sulfate, hydralazine, insulin, levothyroxine, lovastatin, and oxycodone. ALLERGIES OR INTOLERANCES: Bactrim and Advil. FAMILY HISTORY: Negative for urologic disease. SOCIAL HISTORY: Denies current use of alcohol or tobacco. She stopped smoking 20 years ago. REVIEW OF SYSTEMS: A complete review of systems was negative. PHYSICAL EXAMINATION: GENERAL: Alert, 76-year-old white female. VITAL SIGNS: Afebrile with normal vital signs. CHEST: Clear. HEART: Regular rate and rhythm. ABDOMEN: Flat, nontender, nondistended. BACK: No CVA tenderness. GENITOURINARY: She has nephrostomy tubes on the right side. She is ambulatory. PERTINENT LABORATORY: Urinalysis; inflammatory. Culture, negative. Hemoglobin 8.8. Creatinine 1.36 on 01/05/2017. IMPRESSION: Large branched right renal calculus. PLAN: History And Physical [address] [place]. [address] NAME: BALDO ZHAO : 42 STATUS : ADM IN PAT#: [id number] AGE: 76 ADM/REG DATE : 01/05/17 MR#: [id number] REPORT SERV DATE: 01/06/17 DICTATED BY: Nickolas MCCOY DATE: 01/06/17 REPORT STATUS : Draft TRANSCRIBED BY: CHRISTIAN DATE: 01/06/17 1. 01/05/2017: Right nephrostomy tube placement. 2. 01/06/2017: Right percutaneous nephrolithotomy. JORGE/CHRISTIAN Nickolas Mccoy M.D. / [id number] CC: Nickolas Mccoy M.D.
[~2017-01-05 12:31] MED LIST changes: +INSNOVN SC; +INSNOVR SC
[2017-01-05 13:41] LABS: BASOPHILS 0.2 %; BASOPHILS ABSOLUTE 0.01 10/3/uL (0.0-0.16); EOSINOPHILS ABSOLUTE 0.17 10/3/uL (0.0-0.53); HEMATOCRIT 26.8 % (36.0-48.0); HEMOGLOBIN 8.8 g/dL (12.0-16.0); IMMATURE GRANULOCYTES 0.4 %; IMMATURE GRANULOCYTES ABSOLUTE 0.02 10/3/uL (0.0-0.11); LYMPHOCYTES 23.6 %; LYMPHOCYTES ABSOLUTE 1.34 10/3/uL (0.67-4.30); MANUAL DIFF NO %; MEAN CORPUS HGB CONC 32.8 g/dL (32.0-36.0); MEAN CORPUSCULAR HEMOGLOB 33.2 pg (26.0-34.0); MEAN CORPUSCULAR VOLUME 101.1 fL (80-100); MEAN PLATELET VOLUME 9.3 fL (9.2-13.0); MONOCYTES 8.3 %; MONOCYTES ABSOLUTE 0.47 10/3/uL (0.21-1.20); NEUTROPHILS 64.5 %; NEUTROPHILS ABSOLUTE 3.67 10/3/uL (2.02-8.40); PLATELET COUNT 273 10/3/uL (150-400); RBC DISTRIBUTION WIDTH 14.1 % (12.0-16.0); RED CELL COUNT 2.65 10/6/uL (4.0-5.6); WHITE BLOOD CELLS 5.7 10/3/uL (4.5-10.5)
[2017-01-05] MEDS ORDERED: PCET (13:48)
[2017-01-05 13:49] LABS: INTERNATIONAL NORMAL RATI 1.1 UNITS (-); PARTIAL THROMBO TIME 29.1 SEC (22.5-37.2); PROTIME (NOT ORD) 14.2 SEC (12.0-14.5)
[2017-01-05] MEDS ORDERED: PCET PO (13:49)
[2017-01-05 13:52] LABS: BUN (BLOOD UREA NITROGEN) 28 MG/DL (6-23); CALCIUM, SERUM 9.3 MG/DL (8.5-10.4); CHLORIDE, SERUM 107 MMOL/L (96-112); CO2 (CARBON DIOXIDE) 27 MMOL/L (24-34); CREATININE 1.36 MG/DL (0.55-1.02); GFR AFRICAN AMERICAN 44 ML/MIN (>=60); GFR NON AFRICAN AMERICAN 38 ML/MIN (>=60); POTASSIUM, SERUM 4.3 MMOL/L (3.5-5.3); SODIUM, SERUM 141 MMOL/L (135-148)
[2017-01-05 13:54] LABS: GLUCOSE, SERUM 98 MG/DL (60-99)
[2017-01-06 12:43] LABS: HEMATOCRIT 26.7 % (36.0-48.0); HEMOGLOBIN 8.4 g/dL (12.0-16.0)
[2017-01-06 12:58] LABS: BUN (BLOOD UREA NITROGEN) 27 MG/DL (6-23); CHLORIDE, SERUM 111 MMOL/L (96-112); CO2 (CARBON DIOXIDE) 26 MMOL/L (24-34); CREATININE 1.44 MG/DL (0.55-1.02); GFR AFRICAN AMERICAN 41 ML/MIN (>=60); GFR NON AFRICAN AMERICAN 35 ML/MIN (>=60); POTASSIUM, SERUM 4.5 MMOL/L (3.5-5.3); SODIUM, SERUM 143 MMOL/L (135-148)
[2017-01-06 12:59] LABS: CALCIUM, SERUM 8.2 MG/DL (8.5-10.4); GLUCOSE, SERUM 118 MG/DL (60-99)
[2017-01-07 09:36] LABS: HEMATOCRIT 25.4 % (36.0-48.0); HEMOGLOBIN 8.1 g/dL (12.0-16.0)
[2017-01-07 09:48] LABS: BUN (BLOOD UREA NITROGEN) 25 MG/DL (6-23); CALCIUM, SERUM 8.5 MG/DL (8.5-10.4); CHLORIDE, SERUM 109 MMOL/L (96-112); CO2 (CARBON DIOXIDE) 27 MMOL/L (24-34); CREATININE 1.57 MG/DL (0.55-1.02); GFR AFRICAN AMERICAN 37 ML/MIN (>=60); GFR NON AFRICAN AMERICAN 32 ML/MIN (>=60); GLUCOSE, SERUM 156 MG/DL (60-99); POTASSIUM, SERUM 4.7 MMOL/L (3.5-5.3); SODIUM, SERUM 140 MMOL/L (135-148)
[2017-01-08 06:58] LABS: HEMOGLOBIN 7.1 g/dL (12.0-16.0)
[2017-01-08 06:59] LABS: HEMATOCRIT 22.5 % (36.0-48.0)
[2017-01-08 07:06] LABS: BUN (BLOOD UREA NITROGEN) 24 MG/DL (6-23); CALCIUM, SERUM 8.6 MG/DL (8.5-10.4); CHLORIDE, SERUM 106 MMOL/L (96-112); CO2 (CARBON DIOXIDE) 30 MMOL/L (24-34); CREATININE 1.46 MG/DL (0.55-1.02); GFR AFRICAN AMERICAN 40 ML/MIN (>=60); GFR NON AFRICAN AMERICAN 35 ML/MIN (>=60); GLUCOSE, SERUM 114 MG/DL (60-99); POTASSIUM, SERUM 4.6 MMOL/L (3.5-5.3); SODIUM, SERUM 140 MMOL/L (135-148)
[2017-01-08] MEDS ORDERED: PCET PO (12:18)
[2017-01-09 06:06] LABS: BASOPHILS 0.1 %; BASOPHILS ABSOLUTE 0.02 10/3/uL (0.0-0.16); EOSINOPHILS 0.2 %; EOSINOPHILS ABSOLUTE 0.04 10/3/uL (0.0-0.53); IMMATURE GRANULOCYTES 0.3 %; IMMATURE GRANULOCYTES ABSOLUTE 0.06 10/3/uL (0.0-0.11); LYMPHOCYTES 4.4 %; LYMPHOCYTES ABSOLUTE 0.83 10/3/uL (0.67-4.30); MEAN CORPUS HGB CONC 32.5 g/dL (32.0-36.0); MEAN CORPUSCULAR HEMOGLOB 32.2 pg (26.0-34.0); MEAN CORPUSCULAR VOLUME 99.3 fL (80-100); MEAN PLATELET VOLUME 10.1 fL (9.2-13.0); MONOCYTES 6.6 %; MONOCYTES ABSOLUTE 1.24 10/3/uL (0.21-1.20); NEUTROPHILS 88.4 %; NEUTROPHILS ABSOLUTE 16.54 10/3/uL (2.02-8.40); PLATELET COUNT 265 10/3/uL (150-400); RBC DISTRIBUTION WIDTH 15.9 % (12.0-16.0); RED CELL COUNT 2.76 10/6/uL (4.0-5.6)
[2017-01-09 06:15] LABS: WHITE BLOOD CELLS 18.7 10/3/uL (4.5-10.5)
[2017-01-09 06:16] LABS: HEMATOCRIT 27.4 % (36.0-48.0); HEMOGLOBIN 8.9 g/dL (12.0-16.0); MANUAL DIFF NO %
[2017-01-09 06:22] LABS: CALCIUM, SERUM 8.6 MG/DL (8.5-10.4); CHLORIDE, SERUM 103 MMOL/L (96-112); CO2 (CARBON DIOXIDE) 27 MMOL/L (24-34); CREATININE 1.47 MG/DL (0.55-1.02); GFR AFRICAN AMERICAN 40 ML/MIN (>=60); GFR NON AFRICAN AMERICAN 35 ML/MIN (>=60); POTASSIUM, SERUM 4.5 MMOL/L (3.5-5.3); SGOT(AST) 21 U/L (5-40); SGPT(ALT) 17 U/L (5-65); SODIUM, SERUM 136 MMOL/L (135-148); TOTAL BILIRUBIN 0.5 MG/DL (0-1.2); TOTAL PROTEIN 6.3 G/DL (6.0-8.5)
[2017-01-09 06:23] LABS: A/G RATIO 0.6 (0.7-1.9); ALBUMIN 2.4 G/DL (3.5-5.0); ALKALINE PHOSPHATASE 88 U/L (45-117); BUN (BLOOD UREA NITROGEN) 29 MG/DL (6-23); GLOBULIN 3.9 G/DL (2.5-4.1); GLUCOSE, SERUM 156 MG/DL (60-99)
[2017-01-09 13:06] LABS: WBC (NOT ORDERED) (RFLEX) 0 (0-5)
[2017-01-09 13:20] LABS: ASCORBIC ACID (UR NOT ORDER) NEG (NEG); BILIRUBIN, URINE NEGATIVE (NEG); KETONE, URINE NEGATIVE (NEG); LEUKOCYTE ESTERASE(NOT OR NEG (NEG)
[2017-01-10 09:05] LABS: BASOPHILS 0.1 %; BASOPHILS ABSOLUTE 0.01 10/3/uL (0.0-0.16); EOSINOPHILS 1.4 %; EOSINOPHILS ABSOLUTE 0.14 10/3/uL (0.0-0.53); HEMATOCRIT 24.9 % (36.0-48.0); HEMOGLOBIN 8.3 g/dL (12.0-16.0); IMMATURE GRANULOCYTES 0.3 %; IMMATURE GRANULOCYTES ABSOLUTE 0.03 10/3/uL (0.0-0.11); LYMPHOCYTES 8.6 %; LYMPHOCYTES ABSOLUTE 0.86 10/3/uL (0.67-4.30); MEAN CORPUS HGB CONC 33.3 g/dL (32.0-36.0); MEAN CORPUSCULAR HEMOGLOB 32.7 pg (26.0-34.0); MEAN PLATELET VOLUME 9.9 fL (9.2-13.0); MONOCYTES 6.9 %; MONOCYTES ABSOLUTE 0.69 10/3/uL (0.21-1.20); NEUTROPHILS 82.7 %; NEUTROPHILS ABSOLUTE 8.23 10/3/uL (2.02-8.40); PLATELET COUNT 259 10/3/uL (150-400); RBC DISTRIBUTION WIDTH 15.1 % (12.0-16.0); RED CELL COUNT 2.54 10/6/uL (4.0-5.6)
[2017-01-10 09:10] LABS: MANUAL DIFF NO %
[2017-01-10 09:22] LABS: BUN (BLOOD UREA NITROGEN) 29 MG/DL (6-23); CALCIUM, SERUM 8.6 MG/DL (8.5-10.4); CHLORIDE, SERUM 103 MMOL/L (96-112); CO2 (CARBON DIOXIDE) 25 MMOL/L (24-34); CREATININE 1.07 MG/DL (0.55-1.02); GFR AFRICAN AMERICAN 59 ML/MIN (>=60); GFR NON AFRICAN AMERICAN 51 ML/MIN (>=60); GLUCOSE, SERUM 144 MG/DL (60-99); POTASSIUM, SERUM 3.8 MMOL/L (3.5-5.3); SODIUM, SERUM 135 MMOL/L (135-148)
[2017-01-11 06:08] LABS: BASOPHILS 0.1 %; BASOPHILS ABSOLUTE 0.01 10/3/uL (0.0-0.16); EOSINOPHILS ABSOLUTE 0.28 10/3/uL (0.0-0.53); HEMATOCRIT 24.8 % (36.0-48.0); HEMOGLOBIN 8.1 g/dL (12.0-16.0); IMMATURE GRANULOCYTES 0.6 %; IMMATURE GRANULOCYTES ABSOLUTE 0.04 10/3/uL (0.0-0.11); LYMPHOCYTES 9.6 %; LYMPHOCYTES ABSOLUTE 0.67 10/3/uL (0.67-4.30); MEAN CORPUS HGB CONC 32.7 g/dL (32.0-36.0); MEAN CORPUSCULAR HEMOGLOB 32.4 pg (26.0-34.0); MEAN CORPUSCULAR VOLUME 99.2 fL (80-100); MEAN PLATELET VOLUME 9.9 fL (9.2-13.0); MONOCYTES 9.7 %; MONOCYTES ABSOLUTE 0.68 10/3/uL (0.21-1.20); NEUTROPHILS ABSOLUTE 5.33 10/3/uL (2.02-8.40); PLATELET COUNT 314 10/3/uL (150-400); RBC DISTRIBUTION WIDTH 14.7 % (12.0-16.0)
[2017-01-11 06:10] LABS: MANUAL DIFF NO %
[2017-01-11 06:16] LABS: BUN (BLOOD UREA NITROGEN) 26 MG/DL (6-23); CALCIUM, SERUM 8.5 MG/DL (8.5-10.4); CHLORIDE, SERUM 108 MMOL/L (96-112); CO2 (CARBON DIOXIDE) 29 MMOL/L (24-34); GFR AFRICAN AMERICAN 64 ML/MIN (>=60); GFR NON AFRICAN AMERICAN 55 ML/MIN (>=60); GLUCOSE, SERUM 170 MG/DL (60-99); POTASSIUM, SERUM 3.5 MMOL/L (3.5-5.3)
[2017-01-11 06:17] LABS: SODIUM, SERUM 142 MMOL/L (135-148)
[2017-01-13 10:47] LABS: STONE COMPOSITION TWO DNR (())
[2017-02-03] MEDS ORDERED: VITAMIN B PO (10:00)
[2017-02-03] MEDS ORDERED: VITAMIN D31000 UNIT PO (10:00)
== END 2017-01-11 15:51 | disposition home or self-care (01) | DRG 661 ==
LOC: CSSUOP 12:31 → RADHOLD 12:43 → SSU1 17:24 → SDC/OF 01-06 09:34 → 4SO 01-06 14:13
PROVIDERS: Hospitalist
PROC: 0T9030Z Drainage of Right Kidney with Drainage Device, Percutaneous Approach (ICD-10-PCS; 2017-01-05)
PROC: 0TC03ZZ Extirpation of Matter from Right Kidney, Percutaneous Approach (ICD-10-PCS; principal; 2017-01-06 08:15)
PROC: 30233N1 Transfusion of Nonautologous Red Blood Cells into Peripheral Vein, Percutaneous Approach (ICD-10-PCS; 2017-01-08)
DX: N20.0 Calculus of kidney (principal); E11.9 Type 2 diabetes mellitus without complications; D64.9 Anemia, unspecified; I10 Essential (primary) hypertension; E03.9 Hypothyroidism, unspecified; E78.5 Hyperlipidemia, unspecified; Z79.4 Long term (current) use of insulin; Z79.891 Long term (current) use of opiate analgesic; Z79.899 Other long term (current) drug therapy; Z87.891 Personal history of nicotine dependence; Z88.1 Allergy status to other antibiotic agents; Z88.6 Allergy status to analgesic agent; M19.90 Unspecified osteoarthritis, unspecified site; R41.0 Disorientation, unspecified; T40.2X5A Adverse effect of other opioids, initial encounter; Y92.239 Unspecified place in hospital as the place of occurrence of the external cause
CPT/HCPCS: 36415; 50389; 50433; 50434; 50435; 50695; 70450; 71010; 74000; 74176; 76001; 80048; 80053; 81001; 82140; 82365; 82962; 83735; 84145; 85014; 85018; 85025; 85610; 85730; 86850; 86900; 86901; 86920; 87040; 93005; 99152; 99153; A9270-GY; C1726; C1729; C1758; C1769; C1887; C1894; C2617; C2625; J0690; J1170; J1956; J2250; J2270; J2405; J2710; J3010; P9016; Q9967